=== PATIENT | female | born 1990 | race African-American/Black ===

== ENCOUNTER 2018-01-04 18:27 | Emergency (ER) | payer SELFPAY ==
[2018-01-04] MEDS ORDERED: predniSONE 20 MG TAB ONE (19:29)
== END 2018-01-04 19:40 | disposition home or self-care (01) ==
LOC: ERS 18:27
DX: J45.901 Unspecified asthma with (acute) exacerbation (principal)
CPT/HCPCS: J7506; J7620

== ENCOUNTER 2020-07-09 21:57 | Emergency (ER) | payer SELFPAY | END 2020-07-09 22:18 | disposition home or self-care (01) | LOC: ERS 21:57 | DX: H73.892 Other specified disorders of tympanic membrane, left ear (principal); J45.909 Unspecified asthma, uncomplicated; F17.210 Nicotine dependence, cigarettes, uncomplicated | CPT/HCPCS: 99282 ==

== ENCOUNTER 2021-11-24 17:11 | Emergency (ER) | payer SELFPAY | END 2021-11-24 18:15 | disposition home or self-care (01) | LOC: ERS 17:11 | DX: S61.012D Laceration without foreign body of left thumb without damage to nail, subsequent encounter (principal); J45.909 Unspecified asthma, uncomplicated; F17.210 Nicotine dependence, cigarettes, uncomplicated ==

== ENCOUNTER 2025-05-14 05:15 | Emergency (ER) | payer BC, OTHER ==
[2025-05-14] MEDS ORDERED: Acetaminophen 500 MG TAB ONE (07:53)
== END 2025-05-14 08:15 | disposition home or self-care (01) ==
LOC: ERS 05:15
DX: S16.1XXA Strain of muscle, fascia and tendon at neck level, initial encounter (principal); R51.9 Headache, unspecified; F17.210 Nicotine dependence, cigarettes, uncomplicated; Z55.6 Problems related to health literacy; V43.62XA Car passenger injured in collision with other type car in traffic accident, initial encounter; Y92.410 Unspecified street and highway as the place of occurrence of the external cause
CPT/HCPCS: 70450; 72125